=== PATIENT | male | born 1960 | race Caucasian/White ===

== ENCOUNTER 2023-06-14 15:50 | Inpatient (IN) | payer OTHER ==
[2023-06-14] VITALS (9 sets, daily range): BP systolic 108–140; BP diastolic 64–92; PULSE 97–153; RESP 20–24; TEMP 97.6–98.1; O2SAT 95–97
[~2023-06-14] VITALS: Ht 170.2 cm; Wt 86.4 kg
[2023-06-14] MEDS ORDERED: EPINEPHrine PFS 0.1 MG/ML SYR IVP ONE (17:43)
[2023-06-14] MEDS ORDERED: EPINEPHrine 1 MG/ML AMP ONE (17:48)
[2023-06-14] MEDS ORDERED: diphenhydrAMINE 50 MG/ML VIAL ONE (17:55)
[2023-06-14] MEDS ORDERED: diphenhydrAMINE 50 MG/ML VIAL IVP ONE (17:55)
[2023-06-14] MEDS ORDERED: DEXAMETHASONE 10 MG/ML VIAL IVP ONE (17:55)
[2023-06-14] MEDS ORDERED: DEXAMETHASONE 10 MG/ML VIAL ONE (17:56)
[2023-06-14] MEDS ORDERED: TRANEXAMIC ACID 1,000 MG in NACL 0.9% 50 ML IV STA (17:57)
[2023-06-14] MEDS ORDERED: EPINEPHrine 1 MG/ML AMP IM ONE (18:00)
[2023-06-14] MEDS ORDERED: ALBUTEROL 0.083% 2.5 MG/3 ML NEBU INH ONE (18:05)
[2023-06-14] MEDS ORDERED: RACEPINEPHRINE 2.25% 13.5 MG/0.5 ML NEBU INH ONE ×2 (18:05→21:00)
[2023-06-14] MEDS ORDERED: ETOMIDATE 20 MG/10 ML VIAL IVP ONE (18:15)
[2023-06-14] MEDS ORDERED: DONE5TAB34 PO (18:55)
[2023-06-14] MEDS ORDERED: OXYB-118 PO (18:55)
[2023-06-14] MEDS ORDERED: FLUO-402 PO (18:55)
[2023-06-14] MEDS ORDERED: MEMA10TA56 PO (18:55)
[2023-06-14] MEDS ORDERED: ATOR20TA40 PO (18:55)
[2023-06-14] MEDS ORDERED: TAMS0.4C97 PO (18:55)
[2023-06-14] MEDS ORDERED: ONDANSETRON 4 MG/2 ML VIAL IVP PRN (19:00)
[2023-06-14] MEDS ORDERED: MORPHINE SULFATE 2 MG/ML SYR IVP PRN (19:00)
[2023-06-14] MEDS ORDERED: ACETAMINOPHEN 325 MG TAB PO PRN (19:00)
[2023-06-14] MEDS ORDERED: LORazepam 2 MG/ML VIAL IVP PRN (19:00)
[2023-06-14] MEDS ORDERED: BENZOCAINE 20% 57 GM CAN MC ONE (19:07)
[2023-06-14] MEDS ORDERED: TRANEXAMIC ACID 1,000 MG/10 ML VIAL ONE (19:26)
[2023-06-14] MEDS ORDERED: GLYCOPYRROLATE 0.2 MG/ML VIAL IV PRN (19:30)
[2023-06-14] MEDS ORDERED: ESMOLOL 100 MG/10 ML VIAL IV PRN (19:30)
[2023-06-14] MEDS: NACL 0.9% 1,000 ML IV SCH (21:00)
[2023-06-14] MEDS ORDERED: GLYCOPYRROLATE 0.2 MG/ML VIAL ONE (22:24)
[2023-06-14] MEDS ORDERED: ESMOLOL 10 ML IV ONE (22:25)
[2023-06-15] VITALS (10 sets, daily range): BP systolic 120–149; BP diastolic 62–96; PULSE 75–109; RESP 16–27; TEMP 97–98.1; O2SAT 96–99
[2023-06-15] MEDS ORDERED: methylPREDNISolone SS 40 MG in WATER STERILE 1 ML IV SCH ×2
[2023-06-15] MEDS: RACEPINEPHRINE 2.25% 13.5 MG/0.5 ML NEBU INH PRN ×2 (02:34→19:58)
[2023-06-15 04:44] LABS: BASOPHILS % (AUTO) 0.1 % (0.0-2.0); HEMATOCRIT 45.6 % (36-52); HEMOGLOBIN 15.3 g/dL (12.0-18.0); LYMPHOCYTES # (AUTO) 0.5 K/uL (2.0-11.5); MEAN CORPUSCULAR HEMOGLOBIN 30 pg (27-31); MEAN CORPUSCULAR HGB CONC 34 g/dL (33-37); MEAN CORPUSCULAR VOLUME 89.3 fL (80-94); MONOCYTES # (AUTO) 0.2 K/uL (0.8-1.0); MONOCYTES % (AUTO) 2.5 % (1.7-9.3); NEUTROPHILS # (AUTO) 7.2 K/uL (1.8-7.7); NEUTROPHILS % (AUTO) 91.4 % (42.2-75.2); PLATELET COUNT (AUTO) 166 K/uL (140-450); RED CELL DISTRIBUTION WIDTH 13.4 % (11.6-13.7); WHITE BLOOD COUNT (AUTO) 7.9 K/uL (4.8-10.8)
[2023-06-15] MEDS: NACL 0.9% 1,000 ML IV SCH ×2 (05:00→15:00)
[2023-06-15 05:22] LABS: ALBUMIN 3.4 g/dL (3.4-5.0); ANION GAP 17.3 (8-16); CREATININE 0.9 mg/dL (0.6-1.3); POTASSIUM 4.3 mmol/L (3.5-5.1); TOTAL BILIRUBIN 0.7 mg/dL (0.0-1.0)
[2023-06-15 06:25] LABS: CALCIUM 8.5 mg/dL (8.5-10.1); MAGNESIUM 1.7 mg/dL (1.8-2.4); TOTAL PROTEIN, SERUM 7.1 g/dL (6.4-8.2)
[2023-06-15] MEDS: methylPREDNISolone SS 40 MG/ML VIAL IVP SCH ×4 (08:33→23:42)
[2023-06-16] VITALS (7 sets, daily range): BP systolic 136; BP diastolic 79; PULSE 68–96; RESP 18–19; TEMP 97.8; O2SAT 95–100
[2023-06-16] MEDS: NACL 0.9% 1,000 ML IV SCH ×2 (01:25→12:49)
[2023-06-16] MEDS: methylPREDNISolone SS 40 MG/ML VIAL IVP SCH ×2 (05:13→12:44)
[2023-06-16] MEDS ORDERED: PRED20TA5 PO (12:49)
[2023-06-16] MEDS ORDERED: DIPH25TA53 PO (12:50)
== END 2023-06-16 14:30 | disposition home or self-care (01) | DRG 916 ==
LOC: MED 15:50 → MTU 19:02 → MIC 19:33 → MTU 06-15 09:35
PROVIDERS: ADMIT Hospitalist; ATTEND Hospitalist
DX: T78.3XXA Angioneurotic edema, initial encounter (principal); R65.10 Systemic inflammatory response syndrome (SIRS) of non-infectious origin without acute organ dysfunction; G30.9 Alzheimer's disease, unspecified; F02.C0 Dementia in other diseases classified elsewhere, severe, without behavioral disturbance, psychotic disturbance, mood disturbance, and anxiety; E78.5 Hyperlipidemia, unspecified; T78.49XA Other allergy, initial encounter; X58.XXXA Exposure to other specified factors, initial encounter; I10 Essential (primary) hypertension; N40.0 Benign prostatic hyperplasia without lower urinary tract symptoms; R06.03 Acute respiratory distress
CPT/HCPCS: 36415; 71045; 80053; 83735; 85025; 87081; 94640; 96372; 96374; 96375; 99285; J0171; J1100; J1200; J2405; J2920; J3490; J7613